=== PATIENT | male | born 2005 | race Caucasian/White ===

== ENCOUNTER 2025-01-31 11:43 | Emergency (ER) | payer BC, SELFPAY ==
[2025-01-31 11:52] VITALS: BP 149/83
[2025-01-31 12:32] LABS: Glucose - Point of Care 96 mg/dl (70-99)
--- NOTE | 2025-01-31 12:33 | ED.GENMED ---
History of Present Illness
General
Chief Complaint: Fainting Sensation
Source: patient
Exam Limitations: none
Time Seen by Provider: 01/31/25 12:20
History of Present Illness
History of Present Illness:
19-year-old male states he was on his break at work outside vaping and he came back inside and started to feel that his lungs felt cold. He was having trouble breathing when he almost passed out. He had loops of down to the ground. There is no
chest pain. There is no fever. He denies cough. At the time my exam he is back to his baseline. No leg swelling calf pain recent travel or surgery. He states he vapes only nicotine.
Past History
Past History
ED Past Medical History: None
ED Past Surgical History: Other
Social History
Tobacco: Non-smoker
Alcohol: None
Drug: None
Personal: Single
Living: with family
Employment: Employed
Family History
Family History: Other
Phy Exam
Physical Exam
Physical Exam:
General: Well-appearing male no acute respiratory distress
HEENT: Normocephalic atraumatic
Heart: Regular rate and rhythm
Lungs: Clear no wheeze
Abdomen is soft nontender
Extremities: No cyanosis
Course
Orders/Labs/Results
Orders:
Orders
01/31/25 11:56
EKG [Electrocardiogram (*1)] Urgent
Reason for Study: Vertigo / Dizzy
EKG- Treatment ONCE
01/31/25 12:33
CR Chest - 2 Views Urgent
Comment:
Reason For Exam: sob
Vital Signs
Initial and Last Documented VS:
Initial Vital Signs
Temp Pulse Resp BP Pulse Ox
98.0 F 82 16 149/83 100
01/31/25 11:52 01/31/25 11:52 01/31/25 11:52 01/31/25 11:52 01/31/25 11:52
Last Documented Vital Signs
Temp Pulse Resp BP Pulse Ox
98.0 F 73 24 132/78 100
01/31/25 11:52 01/31/25 13:53 01/31/25 13:17 01/31/25 13:52 01/31/25 13:17
MDM/Problems Addressed
Differential Diagnosis Includes:
Patient describes what sounds like near syncopal episode. EKG shows sinus rhythm with sinus arrhythmia no ischemic changes. Will keep on monitor to look for arrhythmias. Check Accu-Chek and chest x-ray. He is not hypoxic nor is he tachycardic.
Do not suspect PE particularly as symptoms have resolved. Question possible vasovagal event versus adverse response to vaping
*Critical Care Note
Total Time (30-74mins, 75-104mins- exclusive of procedures): Not Applicable
Update Note
Update Note:
No arrhythmias noted on monitor. Accu-Chek within normal limits. Chest x-ray was clear. No further symptoms. Suspect vasovagal episode perhaps reaction to vaping. Stable for discharge
ED Attending Note
-
Portions of this chart may have been created with voice recognition software.� Occasional wrong word or��sound alike� substitutions may have occurred due to the inherent limitations of voice recognition software.
Discharge Plan
Departure
Patient Disposition: Home (Routine Discharge)
Date of Disposition: 01/31/25
Time of Disposition: 15:08
Patient with high blood pressure during this ER visit?: No
Discharge Problem:
Near syncope
Instructions: Near Fainting (DC)
Referrals:
UNKNOWN - PT DOES,NOT KNOW [Family Provider] -
Activity Restrictions/Additional Instructions:
Return here if needed. Stay hydrated. Consider stopping vaping. Follow-up with family doctor otherwise
Interventions
Interventions:
*Risk Screen - Suicide Last Done: 01/31/25 12:19
*Neglect/Abuse Screening Last Done: 01/31/25 12:19
*ED COVID-19 Vaccine History Last Done: 01/31/25 12:19
ED- Cardiac Assessment Last Done: 01/31/25 12:20
ED- Neurological Assessment Last Done: 01/31/25 12:20
Discharge Date and Time
Print Language: PARAGUAYAN
[2025-01-31 13:00] VITALS: BP 120/75
[2025-01-31 13:52] VITALS: BP 132/78
== END 2025-01-31 15:23 | disposition home or self-care (01) ==
LOC: EMR 11:43
PROVIDERS: EMERGENCY PHYSICIAN Emergency Medicine
DX: R55 Syncope and collapse (principal)
CPT/HCPCS: 99283; 71046; 82962; 93005